=== PATIENT | male | born 1930 | race Caucasian/White ===

== ENCOUNTER → 2016-08-09 | Outpatient (CLI) | payer OTHER | LOC: FIMAGING 09:46 | PROVIDERS: ATTEND Family Medicine Sports Medicine | DX: J40 Bronchitis, not specified as acute or chronic (principal); I25.83 Coronary atherosclerosis due to lipid rich plaque ==

== ENCOUNTER → 2017-08-19 | Outpatient (CLI) | payer OTHER, MEDICARE | LOC: FIMAGING 12:19 | PROVIDERS: ATTEND Family Medicine Sports Medicine | DX: R91.1 Solitary pulmonary nodule (principal); I70.90 Unspecified atherosclerosis; Z57.1 Occupational exposure to radiation; Z77.090 Contact with and (suspected) exposure to asbestos ==